=== PATIENT | female | born 1995 | race Caucasian/White ===

== ENCOUNTER 2016-09-26 22:05 | Emergency (ER) | payer OTHER ==
[~2016-09-26] VITALS: Ht 167.6 cm; Wt 56.3 kg
[2016-09-26 22:52] LABS: ADD MIUA? NO; BILIRUBIN NEGATIVE; BLOOD NEGATIVE; COLOR YELLOW ((YELLOW)); GLUCOSE (STRIP) NEGATIVE; KETONES NEGATIVE; LEUKOCYTES NEGATIVE; NITRITE NEGATIVE; PROTEIN (STRIP) NEGATIVE; SPECIFIC GRAVITY 1.008 (1.000-1.030); UCUL ADDED? NO; UROBILINOGEN 0.2 MG/DL (0.2-1.0)
[2016-09-26 22:56] LABS: HEMATOCRIT 39.3 % (36.0-46.0); MCHC 33.1 G/DL (30.0-36.0); MCV 90.6 FL (83-99); MEAN PLAT.VOLUME 10.1 uM^3 (9.5-12.4); PLATELET COUNT 276 K/uL (156-360); RBC DIS.WIDTH-CV 13.4 % (11.8-14.6); RBC DIS.WIDTH-SD 43.6 % (39-53); RED BLOOD COUNT 4.34 M/uL (3.80-5.20); WHITE BLOOD COUNT 10.7 K/uL (4.1-10.2)
[2016-09-26 23:03] LABS: CHLORIDE 106 mEq/L (99-109); POTASSIUM 3.9 mEq/L (3.7-5.4); SODIUM 140 mEq/L (136-147)
[2016-09-26 23:05] LABS: GLUCOSE 99 mg/dL (70-99)
[2016-09-26 23:06] LABS: ANION GAP 12 MEQ/L (2-14)
[2016-09-26 23:07] LABS: TOTAL BILIRUBIN 0.8 mg/dL (0.0-1.0)
[2016-09-26 23:09] LABS: ALKALINE PHOSPHATASE 100 IU/L (3-129); GFR ESTIMATE (CALCULATED) > 59 mL/min/
[2016-09-26 23:10] LABS: UREA NITROGEN (BUN) 16 mg/dL (9-23)
[2016-09-26 23:20] LABS: QUANTITATIVE HCG < 4.0 MIU/ML
[2016-09-27] MEDS ORDERED: BENTYL10 MG PO (00:45)
[2016-09-27] MEDS ORDERED: ZOFRAN4 MG PO (00:45)
[2016-09-27 00:57] VITALS: BP 104/65
== END 2016-09-27 01:00 | disposition home or self-care (01) ==
LOC: EME 22:05 → RME 22:05
DX: R10.11 Right upper quadrant pain (principal); F17.200 Nicotine dependence, unspecified, uncomplicated
CPT/HCPCS: 74177; 76705; 80053; 81003; 84702; 85027; 99281; 99285; J7040